=== PATIENT | male | born 1970 | race Caucasian/White ===

== ENCOUNTER 2018-05-04 21:36 | Emergency (ER) | payer OTHER ==
[~2018-05-04] VITALS: Ht 182.9 cm; Wt 101.6 kg
[2018-05-04] MEDS ORDERED: IPRATRPIUM/ALBUTEROL 0.5/2.5MG 3 ML NEBU. NEB ONE (23:00)
[2018-05-04] MEDS ORDERED: ALBUTEROL SULFATE 2.5 MG/3 ML NEBU. NEB ONE (23:45)
[2018-05-04] MEDS ORDERED: predniSONE 20 MG TABLET PO ONE (23:45)
[2018-05-05] MEDS ORDERED: PRED-220 PO (00:05)
[2018-05-05] MEDS ORDERED: ALBU8.5H8 INH (00:05)
[2018-05-05] MEDS ORDERED: LEVO750T31 PO (00:05)
--- NOTE | 2018-05-05 00:06 | PHYS DOC ---
Past History Past Medical History: Arthritis, Sinusitis, Other Past Surgical History: No Surgical History, Other Alcohol Use: None Drug Use: Marijuana Adult General Chief Complaint Chief Complaint: SHORTNESS OF BREATH HPI HPI Patient is a 47 year old male who presents with complaint of cough, shortness of breath, and subjective fever. Patient states his symptoms have been present over the past 3 days. Patient states that the cough has been nonproductive. Patient states that he has felt wheezing and has been having worsening shortness of breath with mild exertion. Patient denies any previous history of chronic lung problems states that he has had similar symptoms in the past and has had to be treated with inhaler, antibiotics, and steroids. Patient states that he is an every day smoker. The patient states that he has not measured a temperature at home but has felt feverish. Patient has not taken any medications for her symptoms today. Review of Systems Review of Systems Constitutional: Subjective fever[] Eyes: Denies change in visual acuity, redness, or eye pain [] HENT: Denies nasal congestion or sore throat [] Respiratory: Nonproductive cough, shortness of breath[] Cardiovascular: Denies chest pain or edema[] GI: Denies abdominal pain, nausea, vomiting, bloody stools or diarrhea [] : Denies dysuria or hematuria [] Musculoskeletal: Denies back pain or joint pain [] Integument: Denies rash or skin lesions [] Neurologic: Denies headache, focal weakness or sensory changes [] All other systems were reviewed and found to be within normal limits, except as documented in this note. Current Medications Current Medications Current Medications Medications (Trade) Dose Ordered Sig/[facility] Start Time Stop Time Status Last Admin Dose Admin Albuterol Sulfate (Ventolin) 5 mg 1X ONCE 05/04/18 23:45 05/04/18 23:47 DC 05/04/18 23:48 5 MG Albuterol/ Ipratropium (Duoneb) 3 ml 1X ONCE 05/04/18 23:00 05/04/18 23:01 DC 05/04/18 23:03 3 ML Prednisone (Prednisone) 60 mg 1X ONCE 05/04/18 23:45 05/04/18 23:47 DC Allergies Allergies Allergies Coded Allergies Type Severity Reaction Last Updated Verified No Known Drug Allergies 07/21/14 No Physical Exam Physical Exam Constitutional: Alert, afebrile, appears in mild respiratory distress. [] HENT: Normocephalic, atraumatic, bilateral external ears normal, oropharynx moist, no oral exudates, nose normal. [] Eyes: PERRLA, EOMI, conjunctiva normal, no discharge. [] Neck: Normal range of motion, no tenderness, supple, no stridor. [] Cardiovascular:Heart rate regular rhythm, no murmur [] Lungs & Thorax: Prolonged expiratory phase, expiratory wheezes bilaterally, no rales[] Abdomen: Bowel sounds normal, soft, no tenderness, no masses, no pulsatile masses. [] Skin: Warm, dry, no erythema, no rash. [] Back: No tenderness, no CVA tenderness. [] Extremities: No tenderness, no cyanosis, no clubbing, ROM intact, no edema. [] Neurologic: Alert and oriented X 3, normal motor function, normal sensory function, no focal deficits noted. [] Current Patient Data Vital Signs Vital Signs Date Time Temp Pulse Resp B/P (MAP) Pulse Ox O2 Delivery O2 Flow Rate FiO2 05/04/18 23:44 92 Room Air 05/04/18 21:57 98.3 62 20 Lab Results Not performed EKG EKG Rhythm strip interpretation by me: Heart rate 81, sinus rhythm, no ectopy[] Radiology/Procedures Radiology/Procedures Two-view chest x-ray interpreted by me: Subtle right lower lobe infiltrate, no effusions, normal cardiac silhouette[] Course & Med Decision Making Course & Med Decision Making Pertinent Labs and Imaging studies reviewed. (See chart for details) The patient was given one unit dose of DuoNeb and 2 additional unit doses of albuterol with improvement in work of breathing. Patient started on oral prednisone. Chest x-ray show signs of early pneumonia in the right lower lobe. The patient was given oral Levaquin. Vital signs are stable at this time and oxygen levels are within normal limits on room air. Patient will be treated as outpatient with oral Levaquin and prednisone and prescribed an inhaler for continued outpatient treatment. Advised follow-up with primary doctor in the next 3 days for reevaluation and return to emergency department for any worsening symptoms. Patient was understanding and in agreement with treatment plan. Dragon Disclaimer Dragon Disclaimer This electronic medical record was generated, in whole or in part, using a voice recognition dictation system. Departure Departure: Impression: Primary Impression: Atypical pneumonia Additional Impression: Reactive airway disease Disposition: HOME, SELF-CARE Condition: IMPROVED Referrals: PCP,ALEX (PCP) Patient Instructions: Pneumonia, Adult Additional Instructions: Follow-up with your primary doctor in 3 days for reevaluation. Return to the emergency department for any worsening symptoms. Scripts Prednisone (PREDNISONE) 10 Mg Tablet 10 MG PO UD for PREDNISONE TAPER, #39 TAB 0 Refills Take 3 tablets by mouth twice a day for 3 days, then take 2 tablets by mouth twice a day for 3 days, then take 1 tablet by mouth twice a day for 3 days, then take 1 tablet by mouth daily x 3 days, then stop. Prov: JESSICA BENEDICT MD 05/05/18 Albuterol Sulfate (PROAIR HFA INHALER) 8.5 Gm Hfa.aer.ad 2 PUFF INH Q4-6HRS PRN for SHORTNESS OF BREATH, #1 INHALER 0 Refills Prov: JESSICA BENEDICT MD 05/05/18 Levofloxacin (LEVAQUIN) 750 Mg Tablet 1 TAB PO DAILY, #5 TAB Prov: JESSICA BENEDICT MD 05/05/18 Problem Qualifiers Additional Impression: Reactive airway disease Asthma severity: moderate Asthma persistence: persistent Asthma complication type: with acute exacerbation Qualified Codes: J45.41 - Moderate persistent asthma with (acute) exacerbation JESSCIA BENEDICT MD May 05, 2018 00:06
[2018-05-05] MEDS ORDERED: levoFLOXacin 750 MG TABLET PO ONE (00:15)
[2018-05-05 01:04] VITALS: BP 127/72
--- NOTE | 2018-05-05 07:50 | RAD ---
Chest, 2 views, 05/04/2018: HISTORY: Shortness of breath and cough The heart size is normal. The lungs are clear. There is no evidence of pleural fluid. IMPRESSION: No acute cardiopulmonary abnormality is detected. Electronically signed by: William Rivas MD (05/05/2018 7:48 AM) [facility]
== END 2018-05-05 01:13 | disposition home or self-care (01) ==
LOC: ER 21:36
DX: J18.8 Other pneumonia, unspecified organism (principal); J45.909 Unspecified asthma, uncomplicated; M19.90 Unspecified osteoarthritis, unspecified site
CPT/HCPCS: 71046; 94640; 99284; J7512; J7613; J7620